=== PATIENT | male | born 1960 | race Caucasian/White ===

== ENCOUNTER 2017-09-04 14:53 | Emergency (ER) | payer SELFPAY ==
[2017-09-04 15:14] VITALS: BP 132/74
--- NOTE | 2017-09-04 16:10 | ED ---
Skin Complaint - HPI Summary HPI Summary: 57 yr old male with complaint of right anterior lower leg injury. he was hammering and a duc of metal chipped off and hit his right lower leg. There is a very small superficial laceration without bleeding. He thinks there may be a small piece of metal in the leg. None can be palpated. - History of Current Complaint Chief Complaint: UCForeignBody Time Seen by Provider: 09/04/17 15:46 Stated Complaint: FB IN RIGHT CALF - Allergy/Home Medications Allergies/Adverse Reactions: Allergies Allergy/AdvReac Type Severity Reaction Status Date / Time No Known Allergies Allergy Verified 09/04/17 15:14 Home Medications: Home Medications Metformin ER (NF) 500 mg PO DAILY 09/04/17 [History Confirmed 09/04/17] PMH/Surg Hx/FS Hx/Imm Hx Previously Healthy: Yes - Surgical History Surgery Procedure, Year, and Place: BACK SX-1992. RIGHT LEG FX REPAIR/HARDWARE- -1995 Infectious Disease History: No Infectious Disease History: Denies: Traveled Outside the [place] in Last 30 Days - Family History Known Family History: Positive: None - Social History Occupation: Employed Full-time Alcohol Use: Daily Alcohol Amount: 1-2 beers Substance Use Type: Reports: None Smoking Status (MU): Former Smoker Review of Systems Positive: Other - possible FB, cut right lower anterior leg All Other Systems Reviewed And Are Negative: Yes Physical Exam Triage Information Reviewed: Yes Vital Signs On Initial Exam: Initial Vitals Temp Pulse Resp BP Pulse Ox 98 F 86 14 132/74 98 09/04/17 15:10 09/04/17 15:10 09/04/17 15:10 09/04/17 15:10 09/04/17 15:10 Vital Signs Reviewed: Yes Appearance: Positive: Well-Appearing, No Pain Distress Skin: Positive: Warm, Other - there is a 5 mm superficial laceration lateral anterior lower right leg. no FB palpable on the surface, and no tenderness. Head/Face: Positive: Normal Head/Face Inspection Eyes: Positive: EOMI ENT: Positive: Normal ENT inspection Respiratory/Lung Sounds: Positive: Other - normal effort Musculoskeletal: Positive: Strength/ROM Intact. Negative: Edema Left, Edema Right Neurological: Positive: Sensory/Motor Intact, Alert, Oriented to Person Place, Time - [place] Coma Scale Best Eye Response: 4 - Spontaneous Best Motor Response: 6 - Obeys Commands Best Verbal Response: 5 - Oriented Diagnostics - Vital Signs Vital Signs Temp Pulse Resp BP Pulse Ox 09/04/17 15:10 98 F 86 14 132/74 98 - Laboratory Lab Statement: Any lab studies that have been ordered have been reviewed, and results considered in the medical decision making process. - Radiology right tib fib Xray Interpretation: Positive (See Comments) Radiology Interpretation Completed By: Radiologist Course/Dx - Course Course Of Treatment: 57 yr male with a 3 mm fb metalic that is not palpable beneath skin surface. I am referring him to General Surgery for follow up though they may not elect to take this out. It is too small and too deep for us to be able to find here. And, i favor not digging into his leg to try to find it given location and small size. - Diagnoses Provider Diagnoses: Foreign body of lower leg Discharge - Discharge Plan Condition: Good Disposition: HOME Patient Education Materials: Soft Tissue Foreign Body (ED) Referrals: Deric Orozco MD [Primary Care Provider] - Clint Leonard MD [Medical Doctor] - 2 Days
--- NOTE | 2017-09-04 16:32 | RAD ---
INDICATION: Laceration right lower extremity COMPARISON: Right ankle June 01, 2010 TECHNIQUE: AP and lateral views were obtained. FINDINGS: There is no acute bony change. There is ORIF of the distal tibial fracture. There is no evidence of hardware failure. There is advanced osteoarthritis about the tibiotalar joint. There is a 3 mm metallic density foreign body in the anterior soft tissues of the proximal to mid lower extremity positioned 4 mm below the skin surface. IMPRESSION: POSTOPERATIVE CHANGE. METALLIC DENSITY FOREIGN BODY.
== END 2017-09-04 16:51 | disposition home or self-care (01) ==
LOC: UCCORT 14:53
DX: S80.851A Superficial foreign body, right lower leg, initial encounter (principal); X58.XXXA Exposure to other specified factors, initial encounter; Y93.89 Activity, other specified; Y92.9 Unspecified place or not applicable; Z87.891 Personal history of nicotine dependence
CPT/HCPCS: 99211; G0463

== ENCOUNTER 2019-11-01 10:48 | Emergency (ER) | payer BC ==
--- OUTSIDE RECORDS SUMMARY | 2019-11-01 11:04 | XMS REPORT | Continuity of Care Document ---
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 Education/Training Program Problems Active Problems Provider Date Open wound of finger with complication Onset: 11/03/2003 Type 2 diabetes mellitus Ramandeep Arredondo MD Onset: 05/01/2019 Gout Ramandeep Arredondo MD Onset: 05/01/2019 Hyperlipidemia Ramandeep Arredondo MD Onset: 05/01/2019 Obstructive sleep apnea syndrome Ramandeep Arredondo MD Onset: 05/01/2019 Psoriasis Ramandeep Arredondo MD Onset: 05/01/2019 Social History Type Date Description Comments Sex Unknown Tobacco Use Start: Unknown End: Quit over 30 years Unknown Smoking Status Reviewed: 09/24/19 Quit over 30 years ETOH Use Uses Alcohol Daily Tobacco Use Start: Unknown End: Patient is a former socially,quit 30yrs Unknown smoker ago Recreational Drug Use Never Used Drugs Allergies, Adverse Reactions, Alerts Description No Known Drug Allergies Medications Active Medications SIG Qnty Indications Ordering Date Provider Diclofenac Sodium take 1 tablet by 60tabs Ratna Galvez, 08/13/2019 75mg mouth twice daily MD Tablets DR with food Atorvastatin Calcium 1 by mouth every 90tabs Ramandeep Arredondo, 05/14/2019 day MD 10mg Tablets Metformin HCL 3 tabs by mouth Unknown 500mg every am Tablets Tazarotene Unknown 0.1% Cream Calcipotriene/Betamet Apply To Both Unknown hasone Dipropionate Dorsal Hands Once Daily AT Night For 0.005-0.064% Ointment Psoriasis Not To Face Or Folds Medications Administered in Office Medication SIG Qnty Indications Ordering Provider Date Depomedrol 40mg/1cc Meghna Keith, [facility] 08/13/2019 (methylprednisolone acetate) Injection Immunizations CPT Code Status Date Vaccine Lot # [id number] Given 09/24/2019 Influenza Virus Vaccine, Quadrivalent, 36 Mos+, [id number] Given 05/01/2019 Pneumovax Injection [id number] Vital Signs Date Vital Result Comment 09/24/2019 8:55am BP Systolic 148 mmHg BP Diastolic 70 mmHg Body Temperature 97.5 F Heart Rate 69 /min Respiratory Rate 18 /min Height 70 inches 5'10" Weight 247.00 lb BMI (Body Mass Index) 35.4 kg/m2 BSA (Body Surface Area) 2.28 m2 [place] body weight in kilograms 75 kg O2 % BldC Oximetry 96 % 09/16/2019 8:42am BP Systolic 152 mmHg BP Diastolic 87 mmHg Body Temperature 96.7 F Heart Rate 96 /min O2 % BldC Oximetry 96 % Results Test Acquired Date Facility Test Result H/L Range Note CBC 09/16/2019 [facility] White Blood 6.1 K/uL Normal 3.4-10.5 1 W/Automated [address] [place] [address] [phone] Red Blood Count 5.56 M/uL Normal 4.20-5.80 Hemoglobin 17.1 gm/dL High 12.8-17.0 Hematocrit 50.0 % High 38.0-48.0 Mean Cell Volume 89.9 fl Normal 80.0-96.0 Mean Corpuscular HGB 30.8 pg Normal 27.0-33.0 Mean Corpuscular HGB Conc 34.2 g/dL Normal 31.7-36.0 Platelet Count 174 K/uL Normal 155-360 Red Cell Distri Width SD 41.0 fl Normal 36-51 Red Cell Distri Width %CV 12.5 % Normal 11.6-15.8 Mean Platelet Volume 9.9 fl Normal 6.6-10.6 Neut% 56.2 % Normal 33.0-73.0 Lymph % 31.6 % Normal 20.0-42.0 [place] % 7.9 % Normal 0.0-10.0 Eo% 3.0 % Normal 0.0-6.6 Bas% 0.8 % Normal 0.0-1.1 Immature Grans 0.5 % Normal 0.0-5.0 NRBC % 0.0 /100WBC < 10/ 100 WBC Neut# 3.43 K/uL Normal 1.8-7.0 Lymph # 1.93 K/uL Normal 1.0-4.0 [place] # 0.48 K/uL Normal 0.0-0.8 Eos # 0.18 K/uL Normal 0.0-0.5 Baso # 0.05 K/uL Normal 0.0-0.1 Immature Grans Absolute 0.03 K/uL NRBC # 0.00 K/uL Comprehensive Metabolic 09/16/2019 [facility] Glucose 139 mg/dL High 74-[address] [place] [address] [phone] BUN 15 mg/dL Normal 7-18 Creatinine 1.1 mg/dL Normal 0.6-1.3 Glom Filtration Rate, Estimate >60 mL/min >60 If >60 mL/min >60 2 BUN/Creat 13.6 ratio Sodium 135 mmol/L Low 136-145 Potassium 4.5 mmol/L Normal 3.5-5.1 Chloride 106 mmol/L Normal 98-107 Carbon Dioxide 25 mmol/L Normal 21-32 Anion Gap 4 mEq/L Low 8-16 Calcium 8.9 mg/dL Normal 8.5-10.1 Total Protein 7.5 g/dL Normal 6.4-8.2 Albumin 4.0 g/dL Normal 3.4-5.0 Globulin 3.5 g/dL Normal 1.9-4.3 Alb/Glob 1.1 ratio Bilirubin,Total 0.5 mg/dL Normal 0.2-1.0 Sgot/Ast 31 U/L Normal 15-37 SGPT/Alt 65 U/L Normal 12-78 Alkaline Phosphatase 64 U/L Normal 45-117 Reflex add FT3? N Reflex add FT4? Y Glycohemoglobin 09/16/2019 [facility] Glycohemoglobin 7.8 % High 4.2-6.[address] (A1c) [place] [address] [phone] eAG 177 mg/dL LDL Cholesterol Profile 09/16/2019 [facility] Cholesterol 132 mg/dL <[address] [place], [place] [id number] [phone] Triglycerides 144 mg/dL <150 5 HDL Cholesterol 59 mg/dL >40 6 LDL-Cholesterol 44 mg/dL < 100 7 Reflex add FT3? N Reflex add FT4? Y TSH Reflex 09/16/2019 [facility] Thyroid Stim 2.53 uIU/mL Normal 0.30-4.20 FT4 And/Or [address] Hormone FT3 [place], [place] [id number] [phone] Reflex add FT3? N Reflex add FT4? Y CK 09/16/2019 [facility] CK 244 U/L Normal 39-[address] [place] [address] [phone] Reflex add FT3? N Reflex add FT4? Y Microalbumin,Random 05/08/2019 [facility] Microalbumin,Urine < 5.0 < [address] mg/L 20.0 [place], [place] [id number] [phone] Glycohemoglobin A1c 05/08/2019 [facility] Glycohemoglobin 6.8 % High 4.2-[address] (A1c) .3 [place], [place] [address] [phone] eAG 148 mg/dL Comprehensive Metabolic 05/08/2019 [facility] Glucose 119 mg/dL High 74-[address] [place] [address] [phone] BUN 13 mg/dL Normal 7-18 Creatinine 1.2 mg/dL Normal 0.6-1.3 Glom Filtration Rate, Estimate >60 mL/min >60 If >60 mL/min >60 10 BUN/Creat 10.8 ratio Sodium 135 mmol/L Low 136-145 Potassium 4.5 mmol/L 3.5-5.1 Chloride 104 mmol/L Normal 98-107 Carbon Dioxide 24 mmol/L Normal 21-32 Anion Gap 7 mEq/L Low 8-16 Calcium 8.8 mg/dL Normal 8.5-10.1 Total Protein 7.5 g/dL Normal 6.4-8.2 Albumin 3.7 g/dL Normal 3.4-5.0 Globulin 3.8 g/dL Normal 1.9-4.3 Alb/Glob 1.0 ratio Bilirubin,Total 0.6 mg/dL Normal 0.2-1.0 Sgot/Ast 28 U/L Normal 15-37 SGPT/Alt 48 U/L Normal 12-78 Alkaline Phosphatase 63 U/L Normal 45-117 CBC W/Automated 05/08/2019 [facility] White Blood 6.9 K/uL Normal 3.4-10.[address] [place] [address] [phone] Red Blood Count 5.28 M/uL Normal 4.20-5.80 Hemoglobin 16.1 gm/dL Normal 12.8-17.0 Hematocrit 47.5 % Normal 38.0-48.0 Mean Cell Volume 90.0 fl Normal 80.0-96.0 Mean Corpuscular HGB 30.5 pg Normal 27.0-33.0 Mean Corpuscular HGB Conc 33.9 g/dL Normal 31.7-36.0 Platelet Count 181 K/uL Normal 155-360 Red Cell Distri Width SD 40.3 fl Normal 36-51 Red Cell Distri Width %CV 12.2 % Normal 11.6-15.8 Mean Platelet Volume 10.3 fl Normal 6.6-10.6 Neut% 65.1 % Normal 33.0-73.0 Lymph % 25.8 % Normal 20.0-42.0 [place] % 6.4 % Normal 0.0-10.0 Eo% 1.8 % Normal 0.0-6.6 Bas% 0.6 % Normal 0.0-1.1 Immature Grans 0.3 % Normal 0.0-5.0 NRBC % 0.0 /100WBC < 10/ 100 WBC Neut# 4.46 K/uL Normal 1.8-7.0 Lymph # 1.77 K/uL Normal 1.0-4.0 [place] # 0.44 K/uL Normal 0.0-0.8 Eos # 0.12 K/uL Normal 0.0-0.5 Baso # 0.04 K/uL Normal 0.0-0.1 Immature Grans Absolute 0.02 K/uL NRBC # 0.00 K/uL Laboratory test 05/08/2019 [facility] Uric Acid 5.4 mg/dL Normal 3.5-7.[address] [place], [place] [id number] [phone] LDL Cholesterol 05/08/2019 [facility] Cholesterol 104 mg/dL <200 11 Profile [address] [place] [address] [phone] Triglycerides 82 mg/dL <150 12 HDL Cholesterol 53 mg/dL >40 13 LDL-Cholesterol 35 mg/dL < 100 14 Laboratory test 05/08/2019 [facility] Hepatitis C < 0.1 0.0-0.[address] Antibody s/[place] [address] [phone] Prostate Specific Antigen 0.92 ng/mL < 4.0 16 CK 330 U/L High 39-308 Slide Review (SEE NOTE) 17 Urine Dipstick 05/01/2019 [facility] Inhouse Ua Color yellow Yellow Ua Clarity clear Clear Ua Leuko negative Negative Ua Nitrite negative Negative Ua Urobilinogen 0.2 0.2 - 1.0 E.U./dL Ua Protein negative Negative Ua PH 6.0 Low 6.5-7.5 Ua Blood negative Negative Ua Specific [place] 1.015 1.010-1.030 Ua Ketones negative Negative Ua Bilirubin negative Negative Ua Glucose negative Negative Microalbumin,Random 05/01/2019 [facility] Microalbumin,Urine < 6.0 < 20.0 [address] mg/[place] [address] [phone] 1 E11.9 E78.5 R23.9 2 Note: Persistent reduction for 3 months or more in an eGFR <60 mL/min/1.73 m2 defines CKD. Patients with eGFR values >/=60 mL/min/1.73 m2 may also have CKD if evidence of persistent proteinuria is present. The original MDRD equation for estimated GFR is not valid for patients less than 18 years of age. Additional information may be found at www.kdoqi.org. 3 Elevated levels of HbA1c suggest the need for more aggressive treatment of glycemia. The [place] [employer] recommends that a primary goal of therapy should be a HbA1c of <7% and that physicians should re-evaluate the treatment regimen in patients with HbA1c values consistently >8%. 4 Reference Guidelines*: Desirable: ........... < 200 mg/dL Borderline High: ..... 200-239 mg/dL High: ................ >= 240 mg/dL * The National Cholesterol Education Program (NCEP) 5 Reference Guidelines*: Normal: ............. < 150 mg/dL Borderline High: .... 150-199 mg/dL High: ............... 200-499 mg/dL Very High: .......... > 500 mg/dL * Source: National Cholesterol Education Program (NCEP) 6 Reference Guidelines*: Low HDL: ..... < 40 mg/dL Normal: ..... 40-60 mg/dL Desirable: ... > 60 mg/dL *The National Cholesterol Education Program(NCEP) 7 Reference Guidelines*: Optimal:........... <100 mg/dL Near Optimal....... 100-129 mg/dL Borderline High.... 130-159 mg/dL High............... 160-189 mg/dL Very High.......... >=190 mg/dL * Source: National Cholesterol Education Program (NCEP) 8 E11.9 M10.9 M78.5 M79.10 Z11.59 Z13.220 Z12.5 Z00. 9 Elevated levels of HbA1c suggest the need for more aggressive treatment of glycemia. The [place] [employer] recommends that a primary goal of therapy should be a HbA1c of <7% and that physicians should re-evaluate the treatment regimen in patients with HbA1c values consistently >8%. 10 Note: Persistent reduction for 3 months or more in an eGFR <60 mL/min/1.73 m2 defines CKD. Patients with eGFR values >/=60 mL/min/1.73 m2 may also have CKD if evidence of persistent proteinuria is present. The original MDRD equation for estimated GFR is not valid for patients less than 18 years of age. Additional information may be found at www.kdoqi.org. 11 Reference Guidelines*: Desirable: ........... < 200 mg/dL Borderline High: ..... 200-239 mg/dL High: ................ >= 240 mg/dL * The National Cholesterol Education Program (NCEP) 12 Reference Guidelines*: Normal: ............. < 150 mg/dL Borderline High: .... 150-199 mg/dL High: ............... 200-499 mg/dL Very High: .......... > 500 mg/dL * Source: National Cholesterol Education Program (NCEP) 13 Reference Guidelines*: Low HDL: ..... < 40 mg/dL Normal: ..... 40-60 mg/dL Desirable: ... > 60 mg/dL *The National Cholesterol Education Program(NCEP) 14 Reference Guidelines*: Optimal:........... <100 mg/dL Near Optimal....... 100-129 mg/dL Borderline High.... 130-159 mg/dL High............... 160-189 mg/dL Very High.......... >=190 mg/dL * Source: National Cholesterol Education Program (NCEP) 15 INFCE Result Units: s/co ratio Negative: < 0.8 Indeterminate: 0.8 - 0.9 Positive: > 0.9 The CDC recommends that a positive HCV antibody result be followed up with a HCV Nucleic Acid Amplification test (370315). Performed at: - [address] [id number] S[place] Cutter: Kirstie Enciso MD, Phone: [phone] 16 THIS ASSAY IS NOT INTENDED A CANCER SCREENING TEST The concentration of PSA in a given specimen, determined with assays from different manufacturers, can vary due to differences in assay methods and reagent specificity. Values obtained from different assay methods cannot be used interchangeably. Method: Siemens Dimension [place] Chemiluminescent immunoassay. 17 Instrument flagged sample for slide review. Less than 10% Bands seen, no other immature WBC's seen. RBC morphology essentially normal. Platelet estimate = NORMAL 18 E11.9 Procedures Date Code Description Status 08/13/2019 20383 Radiology, Shoulder: Two Views (Sso) Completed 08/13/2019 24760 Asp./Injection major joint Completed 05/14/2019 856009961 Diabetic Foot Exam Completed 07/13/2014 [id number] Colonoscopy Completed Medical Devices Description No Information Available Encounters Type Date Location Provider Dx Diagnosis Office Visit 09/16/2019 Orthopaedic Office Meghna Keith M75.32 Calcific 8:45a S., RPAC tendinitis of left shoulder Office Visit 08/13/2019 Orthopaedic Office Meghna Keith M25.512 Pain in left 8:45a S., RPAC shoulder 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 M75.42 Impingement syndrome of left shoulder Office Visit 05/14/2019 8:30a [facility], E11.9 Type 2 diabetes Office Liset, MS, mellitus without [employer], CNM complications M10.9 Gout, unspecified E78.5 Hyperlipidemia, unspecified L40.0 Psoriasis vulgaris R23.9 Unspecified skin changes Office Visit 05/01/2019 8:40a Primary Care Ramandeep Arredondo, E11.9 Type 2 diabetes Office MD mellitus without complications M10.9 Gout, unspecified E78.5 Hyperlipidemia, unspecified G47.33 Obstructive sleep apnea (adult) (pediatric) L40.0 Psoriasis vulgaris Z23 Encounter for immunization Z11.59 Encounter for screening for other viral diseases Z12.5 Encounter for screening for malignant neoplasm of prostate Assessments Date Code Description Provider 09/24/2019 E11.9 Type 2 diabetes mellitus without Gagen, Liset, MS, [employer] -C, complications CNM 09/24/2019 E78.5 Hyperlipidemia, unspecified Gagen, Liset, MS, [employer], CNM 09/24/2019 M10.9 Gout, unspecified Gagen, Liset, MS, [employer], CNM 09/24/2019 G47.33 Obstructive sleep apnea (adult) Gagen, Liset, MS, [employer] -C, (pediatric) CNM 09/24/2019 L40.0 Psoriasis vulgaris Gagen, Liset, MS, [employer], CNM 09/24/2019 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 Gagen, Liset, MS , [employer], CNM 09/24/2019 M25.512 Pain in left shoulder Gagen, Liset, MS, [employer]-C, [facility] 09/24/2019 M75.42 Impingement syndrome of left Liset Pisano, MS, [employer], shoulder [facility] 09/24/2019 E87.1 Hyponatremia Liset Pisano, MS, [employer]-C, [facility] 09/24/2019 Z23 Immunization Liset Pisano, MS, [employer]C, [facility] 09/24/2019 R03.0 Elevated blood-pressure reading Liset Pisano, MS, [employer]IC- C, without diagnosis of hypertension [facility] 09/24/2019 L85.3 Dry skin Liset Pisano, MS, [employer], [facility] 09/16/2019 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 Meghna Keith., [facility] 08/13/2019 M25.512 Pain in left shoulder Meghna Keith., [facility] 08/13/2019 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 Meghna Keith., [facility] 08/13/2019 M75.42 Impingement syndrome of left Meghna Keith., [facility] shoulder 05/14/2019 E11.9 Type 2 diabetes mellitus without Liset Pisano, MS, [employer] -C, complications [facility] 05/14/2019 M10.9 Gout, unspecified Norris, Liset, MS, [employer]-C, [facility] 05/14/2019 E78.5 Hyperlipidemia, unspecified Gagen, Liset, MS, [employer]C, [facility] 05/14/2019 L40.0 Psoriasis vulgaris Gagen, Liset, MS, [employer]C, [facility] 05/14/2019 R23.9 Unspecified skin changes Georgeen, Liset, MS, [employer]-C, [facility] 05/01/2019 E11.9 Type 2 diabetes mellitus without Ramandeep Arredondo MD complications 05/01/2019 M10.9 Gout, unspecified Ramandeep Arredondo MD 05/01/2019 E78.5 Hyperlipidemia, unspecified Ramandeep Arredondo MD 05/01/2019 G47.33 Obstructive sleep apnea (adult) Ramandeep Arredondo MD (pediatric) 05/01/2019 L40.0 Psoriasis vulgaris Ramandeep Arredondo MD 05/01/2019 Z23 Encounter for immunization Ramandeep Arredondo MD 05/01/2019 Z11.59 Encounter for screening for other Ramandeep Arredondo MD viral diseases 05/01/2019 Z12.5 Encounter for screening for Ramandeep Arredondo MD malignant neoplasm of prostate Plan of Treatment Future Appointment(s):12/31/2019 8:30 am - Liset Pisano, MS, [employer]-C, CNM at [facility] Dxkynb7609/24/2019 - Liset Pisano, MS, SILVIA, CNME11.9 Type 2 diabetes mellitus without complicationsNew Labs:Glycohemoglobin A1c, Scheduled : 12/24/19CBC W/Automated Diff, Scheduled: 12/24/19Comments:--HgA1C: 6.8 > 7.8--Continue BP goal is <130/80 mmHg. Patient wants to hold medication until this OV to reassess. --Diet: Include complex carbohydrates such as brown rice, whole wheat, quinoa, oatmeal, fruits, vegetables, beans, lentils. Avoid simple carbohydrates such as, sugar, pasta, white bread, flour, processed foods , baked goods. --Optho: 05/13/19 [facility]--Podiatry: 05/14/19 haddiabetic foot exam in office. We discussed the importance of inspecting feet for abrasions, cuts, non healing sores. Potential for neuropathy, poor healing. Report any changes. --Microalbuminuria: <5--- Patient taking Metformin HCL 500 mg 3 tabs by mouth every am -- Patient does not want to increase his metformin We will Reevaluate A1C in 3 months if not < 7, we will inc metformin to 1000mg po BIDE78.5 Hyperlipidemia, unspecifiedNew Labs:Cholesterol , Scheduled: 12/24/19Comments:--Taking Atorvastatin Calcium 10 mg 1 by mouth every day Total Cholesterol: 104 > 132Triglycerides: 82 > 144High Density Lipids: 53 > 59Low Density Lipids: 35 > 44--Follow a heart healthydiet that emphasizes fruits, vegetables, whole grains, poultry, fish, and nuts. -- [place] [employer] recommends limiting saturated fats to 5-6 % of your daily calories and minimizing the amountof saturated fats and trans fatty acids that you eat. Saturated fats are typically solids at room temperature. Trans fatty acids are found in fried foods, baked goods.--A diet high in fiber can help lower cholesterol. --Decrease sugary food and beverages--Increase physical activity to 30 minutes on most days, as tolerated-- Non smokers should avoid second hand smoke. --Lose weight --CK level is 330,now 244- nl--Last OV, we decreased the atorvastatin from 20 to 10 mg po qday as panel was excellent,due to elevated CK.M10.9 Gout, unspecifiedComments:-infrequent gout attacks-last one years ago- last uric acid 5.4G47.33 Obstructive sleep apnea (adult) ( pediatric)Comments:-continue CPAP and followups annually with Dr. LamasL40.0 Psoriasis vulgarisComments:-continue to followup with Derm-Derm prescribes ointments --Goes Q 6 months, OV next week --Advised to use Eucerin for dry skin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Comments:--Ortho OV on M25.512 Pain in left shoulderComments:--Follows with ortho. --Xray done left shoulder --On 08/13/19 had left shoulder injection and script for diclofenac 75 mg po BID was given. We discussed risks of NSAIDs, GI, cardiovascular thrombotic events (CT, stroke) -- Patient taking diclofenac Qday, advised to try to stop --To trial Jabari Garcia or icindu hotM75.42 Impingement syndrome of left shoulderComments:--Follows with ortho--Had left shoulder X-Ray --On 08/13/19 had left shoulder injection and script for diclofenac 75 mg po BID was given. We discussed risks of NSAIDs, GI, cardiovascular thrombotic events (CT, stroke) --- - Patient taking diclofenac Qday, advised to try to stop --To trial Jabari Garcia or icindu hotE87.1 HyponatremiaNew Labs:Comprehensive Metabolic Panel, Scheduled: 12/24/19Comments:--sodium 135 just slightly low. Will [id number] ImmunizationComments:--Patient received Flu vaccination today after consent.-- Encourage good hand hygiene, Vitamin C 1 GMQDAY, Zinc 30 mg QDAYR03.0 Elevated blood-pressure reading without diagnosis of hypertensionComments:--148/70 Goal with diabetes is <130/80--Will monitor B/P, sa Patient wants to moniot at this time--Limit salt intake. The [place] heart Association recommends 1,500 mg a day as an upper limit for all adults. --Drinking too much alcohol can increase blood pressure. Guidelines recommend no more than2 alcoholic beverage a day for men.--Increase physical activity to 30 minutes on most days, as tolerated.--Lose weight.--Reduce stress. Some things that may help are to avoid triggers, practice gratitude, make time to relax and do activities you enjoy, nhopbirjwzV99.3 Dry skinComments:--Use Eucerin cream liberally to dry skin--Discussed cellulitis with itching dry skinAllFollow up:--Return to office in 3 months. Please get labs 1 week prior to office visit. Functional Status Functional Condition Comment Date Status Independent with all ADL's Active Mental Status Description No Information Available Referrals Description No Information Available
--- OUTSIDE RECORDS SUMMARY | 2019-11-01 11:04 | XMS REPORT | Continuity of Care Document ---
:1960 External Reference #:[id number] Author Name Meghna Keith, [facility] Address [address] [place] [address] Care Team Providers Name Role Phone Ramandeep Arredondo MD - Internal Medicine Care Team Information Emt P [phone] Problems Active Problems Provider Date Open wound [...] over 30 years Unknown Smoking Status Reviewed: 05/14/19 Quit over 30 years ETOH Use Uses [...] Ordering Provider Date Depomedrol 40mg/1cc Meghna Keith, [facility] 08/13/2019 (methylprednisolone acetate) Injection Immunizations CPT Code Status Date Vaccine Lot # [id number] Given 05/01/2019 Pneumovax Injection [id number] Vital Signs Date Vital Result Comment 09/16/2019 8:42am BP Systolic 152 mmHg BP Diastolic 87 mmHg Body Temperature 96.7 F Heart Rate 96 /min O2 % BldC Oximetry 96 % 08/13/2019 8:42am BP Systolic 132 mmHg BP Diastolic 87 mmHg Heart Rate 89 /min Weight 246.12 lb Results Test Acquired Date Facility Test Result H/L Range Note CBC 09/16/2019 [facility] White Blood 6.1 K/uL Normal 3.4-10.5 1 W/Automated [address] [place] [address] [phone] Red Blood Count 5.56 M/uL Normal 4.20-5.80 [...] 33.0-73.0 Lymph % 31.6 % Normal 20.0-42.0 [place] % 7.9 % Normal 0.0-10.0 Eo% 3.0 % Normal 0.0-6.6 Bas% 0.8 % Normal 0.0-1.1 Immature Grans 0.5 % Normal 0.0-5.0 NRBC % 0.0 /100WBC < 10/ 100 WBC Neut# 3.43 K/uL Normal 1.8-7.0 Lymph # 1.93 K/uL Normal 1.0-4.0 [place] # 0.48 K/uL Normal 0.0-0.8 Eos # 0.18 K/uL Normal 0.0-0.5 Baso # 0.05 K/uL Normal 0.0-0.1 Immature Grans Absolute 0.03 K/uL NRBC # 0.00 K/uL Laboratory test 09/16/2019 [facility] Glycohemoglobin A1c <pending> finding [address] [place] [address] [phone] Laboratory test 09/16/2019 [facility] TSH Reflex FT4 And/Or <pending> finding [address] [place] [place] FT3 [place] [address] [phone] CK <pending> Microalbumin,Random 05/08/2019 [facility] Microalbumin,Urine < 5.0 < [address] mg/L 20.0 [place] [address] [phone] Glycohemoglobin A1c 05/08/2019 [facility] Glycohemoglobin 6.8 % High 4.2-[address] (A1c) .3 [place], [place] [id number] [phone] eAG 148 mg/dL Comprehensive Metabolic 05/08/2019 [facility] Glucose 119 mg/dL High 74-[address] [place], [place] [id number] [phone] BUN 13 mg/dL Normal 7-18 Creatinine 1.2 mg/dL Normal 0.6-1.3 Glom Filtration Rate, Estimate >60 mL/min >60 If >60 mL/min >60 4 BUN/Creat 10.8 ratio Sodium 135 mmol/L Low [...] 63 U/L Normal 45-117 CBC W/Automated 05/08/2019 [facility] White Blood 6.9 K/uL Normal 3.4-10.[address] [place] [address] [phone] Red Blood Count 5.28 M/uL Normal 4.20-5.80 [...] 33.0-73.0 Lymph % 25.8 % Normal 20.0-42.0 [place] % 6.4 % Normal 0.0-10.0 Eo% 1.8 % Normal 0.0-6.6 Bas% 0.6 % Normal 0.0-1.1 Immature Grans 0.3 % Normal 0.0-5.0 NRBC % 0.0 /100WBC < 10/ 100 WBC Neut# 4.46 K/uL Normal 1.8-7.0 Lymph # 1.77 K/uL Normal 1.0-4.0 [place] # 0.44 K/uL Normal 0.0-0.8 Eos # 0.12 K/uL Normal 0.0-0.5 Baso # 0.04 K/uL Normal 0.0-0.1 Immature Grans Absolute 0.02 K/uL NRBC # 0.00 K/uL Laboratory test 05/08/2019 [facility] Uric Acid 5.4 mg/dL Normal 3.5-7.[address] [place] [address] [phone] LDL Cholesterol 05/08/2019 [facility] Cholesterol 104 mg/dL <200 [address] [place] [address] [phone] Triglycerides 82 mg/dL <150 6 HDL Cholesterol 53 mg/dL >40 7 LDL-Cholesterol 35 mg/dL < 100 8 Laboratory test 05/08/2019 [facility] Hepatitis C < 0.1 0.0-0.[address] Antibody s/[place] [address] [phone] Prostate Specific Antigen 0.92 ng/mL < 4.0 10 CK 330 U/L High 39-308 Slide Review (SEE NOTE) 11 Urine Dipstick 05/01/2019 [facility] Ua Color yellow Yellow Ua Clarity clear Clear Ua Leuko negative Negative Ua Nitrite negative Negative Ua Urobilinogen 0.2 0.2 - 1.0 E.U./dL Ua Protein negative Negative Ua PH 6.0 Low 6.5-7.5 Ua Blood negative Negative Ua Specific Commodore 1.015 1.010-1.030 Ua Ketones negative Negative Ua Bilirubin negative Negative Ua Glucose negative Negative Microalbumin,Random 05/01/2019 [facility] Microalbumin,Urine < 6.0 < 20.[address] mg/[place] [address] [phone] 1 E11.9 E78.5 R23.9 2 E11.9 M10.9 M78.5 M79.10 Z11.59 Z13.220 Z12.5 Z00. 3 Elevated levels of HbA1c suggest the need for more aggressive treatment of glycemia. The [place] Diabetes Association recommends that a primary goal of therapy should be a HbA1c of <7% and that physicians should re-evaluate the treatment regimen in patients with HbA1c values consistently >8%. 4 Note: Persistent reduction for 3 months or more in an eGFR <60 mL/min/1.73 m2 defines CKD. Patients with eGFR values >/=60 mL/min/1.73 m2 may also have CKD if evidence of persistent proteinuria is present. The original MDRD equation for estimated GFR is not valid for patients less than 18 years of age. Additional information may be found at www.kdoqi.org. 5 Reference Guidelines*: Desirable: ........... < 200 mg/dL Borderline High: ..... 200-239 mg/dL High: ................ >= 240 mg/dL * The National Cholesterol Education Program (NCEP) 6 Reference Guidelines*: Normal: ............. < 150 mg/dL Borderline High: .... 150-199 mg/dL High: ............... 200-499 mg/dL Very High: .......... > 500 mg/dL * Source: National Cholesterol Education Program (NCEP) 7 Reference Guidelines*: Low HDL: ..... < 40 mg/dL Normal: ..... 40-60 mg/dL Desirable: ... > 60 mg/dL *The National Cholesterol Education Program(NCEP) 8 Reference Guidelines*: Optimal:........... <100 mg/dL Near Optimal....... 100-129 mg/dL Borderline High.... 130-159 mg/dL High............... 160-189 mg/dL Very High.......... >=190 mg/dL * Source: National Cholesterol Education Program (NCEP) 9 INFCE Result Units: s/co ratio Negative: < 0.8 Indeterminate: 0.8 - 0.9 Positive: > 0.9 The CDC recommends that a positive HCV antibody result be followed up with a HCV Nucleic Acid Amplification test (455726). Performed at: - [facility] [id number] Rod Hanger: Kirstie Enciso MD, Phone: [phone] 10 THIS ASSAY IS NOT INTENDED A CANCER SCREENING TEST The concentration of PSA in a given specimen, determined with assays from different manufacturers, can vary due to differences in assay methods and reagent specificity. Values obtained from different assay methods cannot be used interchangeably. Method: Siemens Dimension [place] Chemiluminescent immunoassay. 11 Instrument flagged sample for slide review. Less than 10% Bands seen, no other immature WBC's seen. RBC morphology essentially normal. Platelet estimate = NORMAL 12 E11.9 Procedures Date Code Description Status 08/13/2019 97593 Radiology, Shoulder: Two Views (Sso) Completed 08/13/2019 73994 Asp./Injection major joint Completed 07/13/2014 97761292 Colonoscopy Completed Medical Devices Description No Information Available Encounters Type Date Location Provider Dx Diagnosis Office Visit 09/16/2019 Orthopaedic Office KeithMeghna villanueva M75.32 Calcific 8:45a S., [facility] tendinitis of left shoulder Office Visit 08/13/2019 Orthopaedic Office Meghna Keith M25.512 Pain in left 8:45a S., [facility] shoulder 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 M75.42 Impingement syndrome of left shoulder Office Visit 05/14/2019 8:30a [facility], E11.9 Type 2 diabetes Office Liset, [place], mellitus without [employer], CNM complications M10.9 Gout, unspecified E78.5 Hyperlipidemia, [...] of prostate Assessments Date Code Description Provider 09/16/2019 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 Meghna Keith S., [facility] 08/13/2019 M25.512 Pain in left shoulder Meghna Keith S., [facility] 08/13/2019 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 Meghna Keith S., [facility] 08/13/2019 M75.42 Impingement syndrome of left Meghna Keith S., [facility] shoulder 05/14/2019 E11.9 Type 2 diabetes mellitus without Gagen, Liset, MS, [employer]C, complications CNM 05/14/2019 M10.9 Gout, unspecified Gagen, Liset, MS, [employer]C, CNM 05/14/2019 E78.5 Hyperlipidemia, unspecified Gagen, Liset, MS, [employer]C, CNM 05/14/2019 L40.0 Psoriasis vulgaris Gagen, Liset, MS, [employer]C, CNM 05/14/2019 R23.9 Unspecified skin changes Liset Pisano MS, SILVIA, GOOD 05/01/2019 E11.9 Type 2 diabetes mellitus without [...] neoplasm of prostate Plan of Treatment Future Appointment(s):09/24/2019 9:00 am - Liset Pisano MS, SILVIA, GOOD at [facility]/16/2019 - Meghna Keith, RPAC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 Functional Status Functional Condition Comment Date Status Independent with all ADL's Active Mental Status Description No Information Available Referrals Description No Information Available
[2019-11-01 12:10] VITALS: BP 141/88
--- NOTE | 2019-11-01 12:12 | UC ---
Throat Pain/Nasal Epifanio HPI - HPI Summary HPI Summary: Ill for 3 weeks with a cough which just started being productive the past few days but not today. Green nasal coryza with sinus pressure mostly on the left side. Pt uses a CPAP machine at home but does not clean it regularly. - History of Current Complaint Chief Complaint: UCRespiratory Stated Complaint: COUGH X 3 WEEKS Time Seen by Provider: 11/01/19 12:01 Hx Obtained From: Patient Onset/Duration: Gradual Onset Severity: Mild Pain Intensity: 0 Cough: Productive - Productive cough of greenish sputum at times. Associated Signs & Symptoms: Positive: Sinus Discomfort, Nasal Discharge - Greenish nasal coryza with post nasal drainage - Allergies/Home Medications Allergies/Adverse Reactions: Allergies Allergy/AdvReac Type Severity Reaction Status Date / Time No Known Allergies Allergy Verified 11/01/19 12:03 Home Medications: Home Medications Atorvastatin* [Lipitor 10 MG*] 10 mg DAILY 11/01/19 [History Confirmed 11/01/19] Diclofenac Sodium EC TAB* [Voltaren EC TAB*] 1 tab DAILY PRN 11/01/19 [History Confirmed 11/01/19] PMH/Surg Hx/FS Hx/Imm Hx Previously Healthy: Yes - Surgical History Surgical History: Yes Surgery Procedure, Year, and Place: BACK SX-1992. RIGHT LEG FX REPAIR/HARDWARE- -1995 - Family History Known Family History: Positive: None, Non-Contributory - Social History Lives: With Family Alcohol Use: Daily Alcohol Amount: 1-2 beers Substance Use Type: None Smoking Status (MU): Former Smoker When Did the Patient Quit Smoking/Using Tobacco: 30 YEARS AGO - Immunization History Most Recent Influenza Vaccination: yes 2016 Most Recent Tetanus Shot: august 2013 Review of Systems All Other Systems Reviewed And Are Negative: Yes Constitutional: Positive: Fever - Intermittent fever a few days ago. ENT: Positive: Nasal Discharge - Green nasal coryza, Sinus Congestion, Sinus Pain/Tenderness - Left maxillary sinus pressure Respiratory: Positive: Cough - Productuve dry cough with greenish sputum. Is Patient Immunocompromised?: No Physical Exam Triage Information Reviewed: Yes Appearance: Well-Appearing, No Pain Distress, Well-Nourished Vital Signs: Initial Vital Signs Temp 97.8 F 11/01/19 12:05 Pulse 72 11/01/19 12:05 Resp 18 11/01/19 12:05 BP 141/88 11/01/19 12:05 Pulse Ox 97 11/01/19 12:05 Vital Signs Reviewed: Yes Eyes: Positive: Conjunctiva Clear ENT: Positive: Hearing grossly normal, Pharynx normal, Nasal congestion, Nasal drainage - Greenish/yellow post nasal drainage, TMs normal, Uvula midline Neck: Positive: Supple, Nontender, No Lymphadenopathy Respiratory: Positive: Lungs clear, Normal breath sounds, No accessory muscle use Cardiovascular: Positive: RRR, No Murmur, Pulses Normal, Brisk Capillary Refill Musculoskeletal Exam: Normal Neurological Exam: Normal Psychological Exam: Normal Skin Exam: Normal Throat Pain/Nasal Course/Dx - Course Course Of Treatment: Pt comfortable here. I think this is more of a sinus infection as opposed to bronchitis or pneumonia. - Differential Dx/Diagnosis Provider Diagnosis: Sinusitis Discharge ED - Sign-Out/Discharge Documenting (check all that apply): Patient Departure All imaging exams completed and their final reports reviewed: No Studies - Discharge Plan Condition: Good Disposition: HOME Prescriptions: Amoxicillin/Clavulanate TAB* [Augmentin TAB 875*] 875 mg PO BID 10 Days #20 tab Patient Education Materials: Sinusitis (ED) Referrals: Deric Orozco MD [Primary Care Provider] - Additional Instructions: Increase fluids, continue your over the counter medications, Follow u with your doctor in 5-7 days if no improvement. Take the Augmentin with food. - Billing Disposition and Condition Condition: GOOD Disposition: Home
== END 2019-11-01 12:28 | disposition home or self-care (01) ==
LOC: UCCORT 10:48
DX: J32.9 Chronic sinusitis, unspecified (principal); Z87.891 Personal history of nicotine dependence
CPT/HCPCS: 99212; G0463